=== PATIENT | male | born 1970 | race Hispanic/Latino ===

== ENCOUNTER 2018-03-25 10:08 | Inpatient (IN) | payer OTHER ==
[2018-03-25] VITALS (36 sets, daily range): BP systolic 99–166; BP diastolic 64–100
[~2018-03-25] VITALS: Ht 172.7 cm; Wt 81.3 kg
--- NOTE | 2018-03-25 10:24 | NUR ---
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
[2018-03-25] MEDS ORDERED: TORADOL IV STA ×2 (10:26→16:18)
[2018-03-25] MEDS ORDERED: TYLENOL PO STA (10:26)
[2018-03-25] MEDS ORDERED: ZOFRAN IV STA (10:26)
[2018-03-25] MEDS ORDERED: PEPCID IV STA (10:26)
[2018-03-25] MEDS ORDERED: NS 1000ML 2,000 ML IV ONE (10:30)
[2018-03-25] MEDS ORDERED: NS 1000ML 1,000 ML ONE ×2 (10:33→11:01)
[2018-03-25] MEDS ORDERED: PEPCID IV ONE (10:34)
[2018-03-25] MEDS ORDERED: ZOFRAN ONE (10:34)
[2018-03-25] MEDS ORDERED: TYLENOL PO ONE (10:34)
[2018-03-25] MEDS ORDERED: TORADOL ONE (10:34)
--- NOTE | 2018-03-25 10:38 | ER.PDOC ---
General Chief Complaint: Nausea,Vomiting,Diarrhea Stated Complaint: HEADACHE,CHILLS,VOMITING TRAVEL OUT OF US: Yes Time seen by MD: 10:31 Source: patient Exam Limitations: no limitations History of Present Illness Initial Comments 48 yo M no reported PMH presents to the ED c/o 2 days diffuse headache, neck pain, fever, body aches, general weakness, nausea/vomiting, multiple episodes of diarrhea and abdominal pain. Denies any associated photophobia. Timing/Duration: getting worse Severity: moderate Associated Symptoms: fever/chills, headaches, malaise, nausea/vomiting, weakness Allergies: Coded Allergies: No Known Allergies (Unverified , 03/25/18) Home Meds No Active Prescriptions or Reported Meds Past Medical History Medical History: no pertinent history Surgical History: no surgical history Family History Significant Family History: no pertinent family hx Social History Smoking: non-smoker Alcohol Use: none Drug Use: none Reviewed Nursing Reviewed: Vital Signs, Abn. Noted, Nursing Assessment Review of Systems Constitutional: see HPI EENTM: no symptoms reported Respiratory: no symptoms reported Cardiovascular: no symptoms reported Gastrointestinal: no symptoms reported Genitourinary: no symptoms reported Musculoskeletal: see HPI Psychiatric/Neurological: no symptoms reported Hematologic/Lymphatic: no symptoms reported Immunological/Allergic: no symptoms reported All Other Systems: Reviewed and Negative Physical Exam General Appearance: No Apparent Distress, WD/WN EENT: eyes nml inspection, nml ENT inspection Neck: Non-Tender, Full Range of Motion, Supple Respiratory: chest non-tender, lungs clear, normal breath sounds, no respiratory distress CVS: no murmur, no gallop, pulses nml, nml capillary refill, tachycardia Gastrointestinal: Normal Bowel Sounds, Tenderness (mild epigastric tenderness) Back: Normal Inspection Extremities: Normal Range of Motion, Non-Tender, Normal Inspection, No Pedal Edema 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 The area was prepped and draped in the usual sterile fashion. Using landmarks, a 2 gauge spinal needle was inserted in the L4-L5 space. The stylet was removed and the opening pressure was measured at 22 cm of water. 4cc of clear fluid was collected and sent for routine studies. The patient tolerated the procedure well. There was no blood loss or hematoma. Results/Orders Results/Orders Laboratory Tests Test 03/25/18 10:30 03/25/18 10:45 03/25/18 11:10 03/25/18 12:38 Urine Collection Type VOID Urine Color YELLOW (YELLOW) Urine Appearance HAZY (CLEAR) Urine Bilirubin NEGATIVE MG/DL (NEGATIVE) Urine Ketones 5 mg/dL (NEGATIVE) Urine Specific Bishop 1.015 (1.005-1.035) Urine pH 6 (5.0-6.0) Urine Protein 15 mg/dL (NEGATIVE) Urine Urobilinogen 4.0 (NEGATIVE) Urine Nitrate NEGATIVE (NEGATAIVE) Urine Leukocyte Esterase 25 /uL TRACE (NEGATIVE) Urine Blood 10 TR (NEGATIVE) Urine RBC 0-2 RBC/HPF (NONE SEEN) Urine WBC 5-10 WBC/HPF (0-2) Urine Squamous Epithelial Cells NONE SEEN #/HPF (FEW) Urine Bacteria RARE (NONE SEEN) Urine Other TRACE MUCOUS #/HPF Urine Glucose NORMAL (NEGATIVE) Influenza Type A Antigen NEGATIVE (NEG) Influenza B Immunofluorescence NEGATIVE (NEG) Blood Gas Sample Site VBG Oz Test N/A Lactic Acid (Blood Gas) 2.8 MMOL/L (0.5-1.0) Blood Gas Temperature 37 White Blood Count 7.7 10^3/uL (4.5-11.0) Red Blood Count 5.09 10^6/uL (4.50-5.90) Hemoglobin 15.1 g/dL (13.9-16.3) Hematocrit 44.3 % (37.0-53.0) Mean Corpuscular Volume 87.0 fL (78-100) Mean Corpuscular Hemoglobin 29.7 pg (26-34) Mean Corpuscular Hemoglobin Concent 34.1 g/dL (33-37) Red Cell Distribution Width 13.7 % (11.5-14.5) Platelet Count 213 10^3/uL (150-400) Mean Platelet Volume 10.0 fL (7.8-11.0) Neutrophils (%) (Auto) 68.6 % (41.0-85.0) Lymphocytes (%) (Auto) 19.7 % (24.0-44.0) Monocytes (%) (Auto) 10.4 % (5.0-12.0) Neutrophils # (Auto) 5.3 10^3/uL (1.8-7.7) Lymphocytes # (Auto) 1.5 10^3/uL (1.0-4.8) Monocytes # (Auto) 0.8 10^3/uL (0.3-0.8) Absolute Immature Granulocyte (auto 0.02 10^3 u/L (0-2) Eosinophils % 0.5 % (0.0-5.0) Basophils % 0.5 % (0.0-0.2) Basophils # 0.0 10^3/uL (0.0-0.1) Eosinophil Count 0.0 10^3/uL (0.0-0.2) Sodium Level 144 mmol/L (132-145) Potassium Level 3.5 mmol/L (3.6-5.2) Chloride Level 105.0 mmol/L (96-109) Carbon Dioxide Level 31.1 mmol/L (20.0-32) Anion Gap 11.4 Blood Urea Nitrogen 11 mg/dL (7-18) Creatinine 0.97 mg/dL (0.59-1.40) Estimated GFR () 100.0 (>/=60) BUN/Creatinine Ratio 11.0 Glucose Level 86 mg/dL (70-110) Calcium Level 7.9 mg/dL (8.4-10.5) Total Bilirubin 1.7 mg/dL (0.2-1.0) Aspartate Amino Transf (AST/SGOT) 17 U/L (0-35) Alanine Aminotransferase (ALT/SGPT) 19 U/L (12-78) Alkaline Phosphatase 79 U/L (50-136) Total Protein 6.9 g/dL (6.4-8.2) Albumin 3.2 g/dL (3.4-5.0) Globulin 3.7 Lipase 126 U/L (114-286) Percent Immature Gran (Cell Imm) 0.30 % (0.00-0.50) CSF Volume 4.0 ML (2.5-5.0) CSF Appearance CLEAR (CLEAR) CSF Color YELLOW (COLORLESS) CSF WBC 139 /mm3 (0-5) CSF RBC 14 /mm3 CSF Neutrophils 1 % CSF Lymphocytes 98 % CSF Other Cells BASOPHILS CSF Comment PATHOLOGY TO REVIEW CSF Glucose 64 mg/dL (40-70) CSF Total Protein 95 mg/dL (15-45) Administered Medications Medications (Trade) Dose Ordered Sig/Jaleesa Route PRN Reason Start Time Stop Time Status Last Admin Dose Admin Ondansetron HCl (Zofran) 4 mg STAT STAT IV 03/25/18 10:26 03/25/18 10:32 DC 03/25/18 10:48 Ketorolac Tromethamine (Toradol) 30 mg STAT STAT IV 03/25/18 10:26 03/25/18 10:32 DC 03/25/18 10:48 Sodium Chloride 2,000 ml @ 0 mls/hr Q0M ONCE IV 03/25/18 10:30 03/25/18 10:32 DC 03/25/18 10:48 Famotidine (Pepcid) 20 mg STAT STAT IV 03/25/18 10:26 03/25/18 10:32 DC 03/25/18 10:48 Acetaminophen (Tylenol) 1,000 mg STAT STAT PO 03/25/18 10:26 03/25/18 10:32 DC 03/25/18 10:49 Ceftriaxone Sodium 1000 mg/ Sodium Chloride 100 ml @ 100 mls/hr STAT STAT IV 03/25/18 10:55 03/25/18 11:54 DC 03/25/18 11:04 Metoclopramide HCl (Reglan) 10 mg STAT STAT IV 03/25/18 11:27 03/25/18 11:32 DC 03/25/18 11:47 Diphenhydramine HCl (Benadryl) 25 mg STAT STAT IV 03/25/18 11:45 03/25/18 11:47 DC 03/25/18 11:43 Microbiology Date/Time Source Procedure Growth Status 03/25/18 12:38 Cerebral Spinal Fluid Gram Stain - Final Resulted 03/25/18 12:38 Cerebral Spinal Fluid CSF Culture Pending Resulted Progress Progress 48 yo M p/w multiple complaints, DDx includes viral illness, intraabdominal infection at this time. VS notable for tachycardia, will intiate lab workup to r/o sepsis, occult infection, also give IVF, analgesia and anti-emetic. 1236pm - patient c/o persistent neck pain, he was consented for LP, results pending. 240pm - CSF results consistent with viral meningitis, patient discussed with Dr. Ivy, admitted to ICU with droplet precautions. Departure Time of Disposition: 15:00 Disposition: 09 ADMITTED INPATIENT Impression: Primary Impression: Viral meningitis Condition: Stable Referrals: PCP,UNKNOWN (PCP) PRIMARY CARE PROVIDER Scripts No Active Prescriptions or Reported Meds Duration or Time Spent with Pa: 60 SABAS SALVADOR MD Mar 25, 2018 10:38
[2018-03-25] MEDS ORDERED: ROCEPHIN 1,000 MG in NS 100ML 100 ML IV STA (10:55)
--- NOTE | 2018-03-25 10:55 | NUR ---
RT LACTIC 2.9
--- NOTE | 2018-03-25 11:00 | NUR ---
BLOOD CULTURES BLOOD CULTURES DRAWN BY LAB.
[2018-03-25] MEDS ORDERED: ROCEPHIN ONE ×2 (11:01→20:40)
[2018-03-25 11:02] LABS: BILIRUBIN,URINE NEGATIVE (NEGATIVE)
[2018-03-25 11:22] LABS: BASOPHIL % 0.5 % (0.0-0.2); EOSINOPHIL % 0.5 % (0.0-5.0); HEMOGLOBIN 15.1 g/dL (13.9-16.3); LYMPHOCYTES # 1.5 10^3/uL (1.0-4.8); LYMPHOCYTES % 19.7 % (24.0-44.0); MEAN CELL HGB 29.7 pg (26-34); MEAN CELL HGB CONCENTRATION 34.1 g/dL (33-37); MONOCYTES # 0.8 10^3/uL (0.3-0.8); MONOCYTES % 10.4 % (5.0-12.0); NEUTROPHIL # 5.3 10^3/uL (1.8-7.7); NEUTROPHILS % 68.6 % (41.0-85.0); RED CELL DISTRIBUTION WIDTH 13.7 % (11.5-14.5); WHITE BLOOD CELL 7.7 10^3/uL (4.5-11.0)
[2018-03-25] MEDS ORDERED: REGLAN IV STA (11:27)
[2018-03-25] MEDS ORDERED: BENADRYL IM STA (11:27)
[2018-03-25 11:34] LABS: APPEARANCE,URINE HAZY (CLEAR); UA COLOR YELLOW (YELLOW)
[2018-03-25 11:35] LABS: CALCIUM 7.9 mg/dL (8.4-10.5); CARBON DIOXIDE 31.1 mmol/L (20.0-32)
[2018-03-25] MEDS ORDERED: BENADRYL ONE (11:39)
[2018-03-25] MEDS ORDERED: NS 100ML 100 ML IV ONE ×2 (11:43→20:41)
[2018-03-25] MEDS ORDERED: BENADRYL IV STA (11:45)
--- NOTE | 2018-03-25 11:50 | NUR ---
STATUS PATIENT RESTING, NO DISTRESS NOTED.
--- NOTE | 2018-03-25 12:19 | NUR ---
LUMBAR PUNCTURE CONSENT SIGNED FOR PROCEDURE,DOCTOR SRI AT BEDSIDE, LUMBAR PUNCTURE PREFORMED USING STERILE TECHNIQUE.
--- NOTE | 2018-03-25 12:34 | NUR ---
SPINAL FLUID 2 SAMPLED OF SPINAL FLUIDS COLLECTED BY DOCTOR FIERRO AND SENT TO LAB, PATIENT TOLERATED PROCEDURE WELL, PATIENT LYING ON LEFT SIDE.
--- NOTE | 2018-03-25 12:55 | NUR ---
PUNCTURE SITE ASSESSED PATIENTS PUNCTURE SITE, DRESSING REMAINS CLEAN,DRY AND INTACT. PATIENT DENIES NEEDS AT THIS TIME.
--- NOTE | 2018-03-25 13:30 | NUR ---
STATUS PATIENT RESTING ON LEFT SIDE, DRESSING CLEAN DRY AND INTACT, AWAITING LAB RESULTS.
--- NOTE | 2018-03-25 14:17 | NUR ---
SANDRA FIERRO ON PHONE
[2018-03-25] MEDS ORDERED: TYLENOL PO PRN (14:30)
[2018-03-25] MEDS ORDERED: ZOFRAN IV PRN (14:30)
[2018-03-25] MEDS ORDERED: ZOVIRAX IV SCH (14:33)
[2018-03-25] MEDS ORDERED: NS IV SCH (14:33)
--- NOTE | 2018-03-25 14:53 | NUR ---
Arrival Patient arrived on unit via stretcher. Patient transferred self to bed with stand by assistance. Report received from Elva WHITING. Assumed care of patient. Placed patient on bedside monitor. Oriented patient to room. Offered patient fluids and snacks. Admission and assessment completed as charted. Lumbar puncture to lower back noted, performed in ER. Site covered with bandaid. No drainage noted. Educated pt on use of call light, pt verbalized understanding. Educated patient on droplet precautions related to meningitis, pt verbalized understanding. Educated pt on medication regimen, pt verbalized understanding. Answered all of patient's questions. Call light within reach. Will continue to monitor. No s/s of distress noted
--- NOTE | 2018-03-25 15:00 | NUR ---
Mobility level Patient mobility level B. Patient will get up to chair 3x per day for meals and use B[facility] for all needs. Patient participates in own care.
--- NOTE | 2018-03-25 15:30 | NUR ---
Dr. Cata Ivy on telephone. New order received for 500cc IV bolus per sepsis protocol, 1/2 NS with 20K to infuse at 70ml/hr. New order received for Rocephin 1gm q12hr. RBTO.
[2018-03-25] MEDS ORDERED: NS 500ML 500 ML IV ONE ×2 (15:35→16:00)
[2018-03-25] MEDS ORDERED: HNS 1000ML/KCL 20MEQ 1,000 ML ONE (15:36)
[2018-03-25] MEDS ORDERED: VANCOMYCIN HCL 1 GM in NS 250ML 250 ML IV SCH ×3 (16:00→18:00)
--- NOTE | 2018-03-25 16:00 | NUR ---
Dr. Cata Ivy at bedside. No new orders received.
[2018-03-25] MEDS ORDERED: VANCOMYCIN HCL 1 GM ONE (16:28)
[2018-03-25] MEDS ORDERED: NS 250ML 250 ML IV ONE (16:38)
--- NOTE | 2018-03-25 17:04 | HPH ---
ADMIT DATE: 03/25/2018 The patient is being admitted to ICU as an inpatient. PRIMARY CARE PHYSICIAN: None. ADMITTING DIAGNOSIS: Meningitis with headache and photophobia. CHIEF COMPLAINT: Headache, fever and chills. 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 He is from the [facility] and he has been healthy recently. There days ago, he was working with his coworkers on the pavement and there were sick contacts around him, several of his coworkers had some type of illness, where they were having diarrhea and not feeling well, but they did get over this. He started to come down with some headache, vague headache, night and this progressed for him to be nauseated, but no vomiting. He started to have some neck stiffness and some body aches and he tried to eat, but really had no appetite and he was extremely nauseated. This progressed throughout the next couple of days. He did not feel better. 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 He denies any arthralgias, no melena, no hematochezia, no shortness of breath, no chest pain, no hemoptysis, no hematemesis. He denies any ticks that have bit him recently and he has looked all over his body for any kind of tick florentino and he does not recall having any, but he was still feeling bad with rigors, chills and headache. So, his boss made him go to the hospital where he was subsequently admitted to my service. PAST MEDICAL HISTORY: None. PAST SURGICAL HISTORY: None. ALLERGIES: No known drug allergies. MEDICATIONS: He takes is none. SOCIAL HISTORY: Does not smoke. Occasional alcohol, no illicit drugs. FAMILY HISTORY: Asked and noncontributory for this admission. PHYSICAL EXAMINATION: VITAL SIGNS: Upon presentation, his temperature is 98.4, pulse rate was 107, respirations 20, blood pressure is 163/97, O2 sats of 98% on room air. My physical exam is as follows: GENERAL: He is in no acute distress, awake, alert, oriented x 4. His sensorium is intact. OROPHARYNX: He did have some whitish ulcerated lesions in the hard palate in his mouth. On his face, there are 2 areas of boils noted to his right cheek. NECK: Supple, no JVD, no bruits. HEART: S1, S2 audible. No tachycardia. Heart rate on my exam was about 80. LUNGS: Clear bilaterally, was not tachypneic. ABDOMEN: Good bowel sounds, soft abdomen. No rebound or guarding. EXTREMITIES: No pitting edema, 2+ distal pulses are noted. SKIN: Warm and dry. NEUROLOGIC: There are no gross motor deficits noted. Pupils were equal, reactive to light. LABORATORY DATA: He was a bit photophobic on my exam. Labs were drawn. CBC was normal. White count was 7700. Lactic acid level is 2.8. Chemistry panel showed potassium 3.5, calcium 7.9. Total bilirubin of 1.7, albumin 3.2. UA was hazy with 5-10 wbc's and rare bacteria noted. He had a lumbar puncture done in the ER that was clear but he did have 139 white cells, 98% of them were lymphocytes. Glucose was 64, total protein was elevated to 95. ASSESSMENT: We have this gentleman with meningitis with headache, photophobia and fever. I will go ahead and admit him to ICU under droplet precautions for the first 48 hours. I will empirically start him on vancomycin, Rocephin at meningitic doses and await for cultures, put him on IV fluids and treat his headache and follow him closely in the hospital. Dary Ivy MD DR: GINGER/adilson JOB# [id number]
[2018-03-25] MEDS: HNS 1000ML/KCL 20MEQ 1,000 ML IV SCH (17:10)
[2018-03-25] MEDS: DECADRON IV SCH ×2 (17:55→23:48)
--- NOTE | 2018-03-25 18:00 | NUR ---
Urinal Patient stood at side of bed to urinate in urinal. 500 cc of cloudy light shantanu urine noted.
--- NOTE | 2018-03-25 18:45 | NUR ---
REPORT RECEIVED FROM ANMOL FLORES RN. ASSUMED PT CARE.
--- NOTE | 2018-03-25 20:00 | NUR ---
PUNCTURE SITE ASSESSED PATIENTS PUNCTURE SITE, DRESSING REMAINS CLEAN, DRY AND INTACT. PT REPORTS SLIGHT PAIN TO SITE. PATIENT DENIES NEEDS AT THIS TIME.
--- NOTE | 2018-03-25 20:30 | NUR ---
PT STATUS: PT REPORTED HEADACHE AND STIFFNESS TO NECK, BODY CHILLS AND FEELING CLAMMY. PT DENIES ANY PHOTOPHOBIA, OR NAUSEA AT THIS TIME. PT IS AFEBRILE. PT ALSO REPORTS OF SLIGHT WEAKNESS BUT MUCH BETTER THAN PAST FEW DAYS. DISEASE PROCESS EXPLAINED TO PT WELL SYMPTOMS TO EXPECT. ALSO INFORMED PT OF CURRENT TREATMENT PLAN OF ANTIBIOTICS, STEROIDS AND PAIN MANAGEMENT. PT VERBALIZED UNDERSTANDING.
[2018-03-25] MEDS ORDERED: ROCEPHIN 1,000 MG in NS 100ML 100 ML IV SCH (21:00)
[2018-03-25] MEDS ORDERED: ROCEPHIN 2,000 MG in NS 100ML 100 ML IV SCH (21:00)
--- NOTE | 2018-03-25 21:13 | NUR ---
MOBILITY LEVEL B: PT IS MOBILITY LEVEL B.
--- NOTE | 2018-03-25 21:15 | NUR ---
SNACK: PT REQUESTED EVENING SNACK OF JELLO AND PROVIDED.
[2018-03-25] MEDS: TORADOL IV PRN (23:50)
[2018-03-26] VITALS (43 sets, daily range): BP systolic 111–160; BP diastolic 50–97
--- NOTE | 2018-03-26 00:05 | NUR ---
VOID: PT UP TO BEDSIDE TO VOID USING URINAL. PT VOIDED 500ML. PT IS MOBILITY LEVEL B.
[2018-03-26] MEDS: TYLENOL PO PRN ×3 (02:57→20:51)
--- NOTE | 2018-03-26 03:03 | NUR ---
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 PAIN AUTOMATIC DIE CUTTING MACHINE OPERATOR TO MANAGE BREAKTHROUGH PAIN. PER MD TO CONTINUE TO GIVE PAIN MED BY ALTERNATING TYLENOL AND KETOROLAC.
[2018-03-26] MEDS ORDERED: VANCOMYCIN HCL 1 GM ONE (04:44)
[2018-03-26] MEDS ORDERED: NS 250ML 250 ML IV ONE (04:44)
--- NOTE | 2018-03-26 04:54 | NUR ---
LAB AT BEDSIDE FOR BLOOD DRAW.
[2018-03-26] MEDS ORDERED: VANCOMYCIN HCL 1 GM in NS 250ML 250 ML IV SCH (05:00)
--- NOTE | 2018-03-26 05:07 | NUR ---
MOBILITY LEVEL B: PT IS MOBILITY LEVEL B. PT UP TO BEDSIDE TO VOID USING URINAL. PT TOLERATED WELL.
[2018-03-26 05:22] LABS: BASOPHIL % 0.1 % (0.0-0.2); HEMOGLOBIN 14.4 g/dL (13.9-16.3); LYMPHOCYTES % 12.1 % (24.0-44.0); MEAN CELL HGB 29.2 pg (26-34); MEAN CELL HGB CONCENTRATION 34.1 g/dL (33-37); MEAN CORP VOLUME 85.6 fL (78-100); MEAN PLATELET VOLUME 10.1 fL (7.8-11.0); MONOCYTES # 0.1 10^3/uL (0.3-0.8); MONOCYTES % 0.6 % (5.0-12.0); NEUTROPHIL # 6.9 10^3/uL (1.8-7.7); NEUTROPHILS % 87.1 % (41.0-85.0); RED CELL DISTRIBUTION WIDTH 13.3 % (11.5-14.5)
[2018-03-26 05:44] LABS: CALCIUM 8.4 mg/dL (8.4-10.5); CARBON DIOXIDE 26.5 mmol/L (20.0-32)
[2018-03-26] MEDS: DECADRON IV SCH ×4 (05:49→23:38)
--- NOTE | 2018-03-26 06:00 | NUR ---
BATH: PT GIVEN SUPPLIES TO GIVE SELF BATH AND ORAL CARE. PT AMBULATED WELL IN ROOM WITH NO DIFFICULTY NOTED. BED LINEN CHANGED AND PT SEATED IN CHAIR. PT AGREED TO SIT IN CHAIR UNTIL BREAKFAST THIS AM. CALL LIGHT WITHIN REACH. PT REPORTS FEELING BETTER. PT REPORTS OF SLIGHT PAIN TO HEAD AND MINIMAL PHOTOPHOBIA.
[2018-03-26] MEDS: TORADOL IV PRN (06:13)
--- NOTE | 2018-03-26 06:30 | NUR ---
DR FLORES AT BEDSIDE. PT HAD SEVERAL CONCERNS WHICH HAVE BEEN ADDRESSED BY MD REGARDING DISEASE PROCESS AND PLAN OF CARE. PT VERBALIZED UNDERSTANDING.
--- NOTE | 2018-03-26 06:40 | NUR ---
MOBILITY LEVEL: PT UPGRADED TO MOBILITY LEVEL A. PT DID ALL PERSONAL CARE BY HIMSELF. PT ABLE TO AMBULATE TO BATHROOM FOR TOILETING NEEDS. PT SEATED IN CHAIR FOR BREAKFAST.
--- NOTE | 2018-03-26 07:00 | NUR ---
REPORT TO AM SHIFT. PT CARE RELINQUISHED.
--- NOTE | 2018-03-26 07:00 | NUR ---
RECEIVED REPORT AND PATIENT CARE ASSUMED. PATIENT AWAKE SITTING UP IN CHAIR WATCHING TV. WEARING NON SKID SOCKS. NO DISTRESS NOTED. CALL LIGHT WITHIN EASY REACH.
--- NOTE | 2018-03-26 07:35 | NUR ---
ASSESSMENT/ACTIVITY LEVEL A ASSESSMENT COMPLETED CHARTED. SEE EMR. NO DISTRESS NOTED. PATIENT AMBULATED BACK TO BE WITHOUT ASSISTANCE .GAIT STEADY AND BALANCED. HOB ELEVATED 45 DEGREE. PATIENT C/O GAYLE TO BACK HEAD AND TO FRONTAL SINUS AREA. RATED PAIN 6/10. PATIENT ABLE TO HAVE TYLENOL 500MG PO AT 0900. LUNG CTAB. HR REGULAR. PULSE 2+ TO ALL EXTREMITIES. NO EDEMA NOTED. ORAL TEMP 97.8
--- NOTE | 2018-03-26 08:00 | NUR ---
AMB TO CHAIR PATIENT AMB TO CHAIR FOR BREAKFAST. NO DISTRESS NOTED. CALL LIGHT WITHIN EASY REACH.
--- NOTE | 2018-03-26 08:28 | NUR ---
DR. PAZ/AMBULATION EMILY. BRANDI AT BEDSIDE. PATIENT AMBULATED BACK TO BED WITHOUT ASSISTANCE. DR. PAZ TURNED ON BRIGHT LIGHT PATIENT HAD NO S/S OF PHOTOSENSITIVITY. C/O OF ACHE TO NECK AND FRONTAL SINUS AREA. DR. PAZ TO PRESCRIBED FLEXERIL 10MG PO. PATIENT TO TRANSFER TO MED/SURG TODAY. PATIENT AGREED TO POC. NO QUESTIONS AT THIS TIME. WRITTEN INFORMATION GIVEN REGARDING VIRAL MENINGITIS. PATIENT LEFT RESTING IN BED. CALL LIGHT WITHIN EASY REACH.
[2018-03-26] MEDS ORDERED: FLEXERIL PO PRN (09:00)
[2018-03-26] MEDS: ROCEPHIN 2,000 MG in NS 100ML 100 ML IV SCH ×2 (09:41→20:52)
[2018-03-26] MEDS: PROTONIX PO SCH (09:42)
--- NOTE | 2018-03-26 09:45 | NUR ---
DISCHARGE PLAN CM VISITED WITH PATIENT REGARDING DISCHARGE PLAN AND NEEDS. PATIENT LIVES IN [place], [place] BUT HAS BEEN STAYING AT THE [facility] IN [place] WHILE HE IS HERE FOR WORK. HE IS VERY ACTIVE AND INDEPENDENT. HE HAS A GREAT SUPPORT SYSTEM THROUGH FAMILY AND FRIENDS. NO CM NEEDS AT THIS TIME. PATIENT VOICED CONCERN ON TRANSPORTATION BACK TO THE [facility] UPON DISCHARGE. PATIENT NOTIFIED THAT WE HAVE A [facility] THAT CAN TAKE HIM. 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 PATIENT STATES HE WILL SPEAK WITH DR. PAZ ABOUT WHEN HE CAN RETURN TO WORK. DISCHARGE GOAL IS TO DISCHARGE HOME WITH ROUTINE SELF CARE. CM DEPT WILL CONTINUE TO MONITOR DISCHARGE NEEDS.
--- NOTE | 2018-03-26 10:15 | NUR ---
MED/SURG TRANSFER PATIENT TRANSFER SELF INTO WC. FACE MASK PLACED ON PATIENT. PATIENT TAKE TO MED/SURG ROOM 302. ORIENTED TO ROOM, BED, AND CALL LIGHT. WATER AND SNACK PROVIDED. REPORT GIVEN TO ELSI WHITING.
--- NOTE | 2018-03-26 10:30 | NUR ---
ARRIVAL Pt ARRIVED TO THE UNIT IN ROOM 302,IN WC ASSISTED BY ICU NURSE, REPORT RECEIVED FROM THE ICU NURSE, Pt IN DROPLET PRECAUTIONS FOR [address] PER ORDER OF [address]. FLORES. ORIENTED Pt TO ROOM. CALL LIGHT, BATHROOM, BED REMOTE. Pt AO X 4, VERBALIZES NEEDS, WILL CONTINUE TO MONITOR THE Pt.
[2018-03-26] MEDS: HNS 1000ML/KCL 20MEQ 1,000 ML IV SCH ×2 (13:46→21:36)
[2018-03-26] MEDS: VANCOMYCIN HCL 1 GM in NS 250ML 250 ML IV SCH (17:31)
--- NOTE | 2018-03-26 17:31 | NUR ---
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
[2018-03-27] MEDS ORDERED: DECADRON ONE ×2 (01:03→01:05)
--- NOTE | 2018-03-27 02:19 | PNH ---
DATE: 03/26/2018 SUBJECTIVE: He has no photophobia and no nuchal rigidity. He complains of a headache in a band-like fashion around his head. No nausea. No acute events overnight. OBJECTIVE: VITAL SIGNS: T-max since admission is 98.8, pulse of 69, respiratory rate 16, blood pressure 136/81, O2 saturation 96% on room air. GENERAL: He is alert, in no acute distress at time of exam. HEENT: Pupils equal, round, reactive to light. Sclerae are anicteric. Oropharynx is clear. Mucous membranes are moist. There is no photophobia. NECK: Supple, no nuchal rigidity, no lymphadenopathy. CARDIOVASCULAR: At time of exam was regular rate and rhythm. LUNGS: Clear bilaterally. No wheezing. ABDOMEN: Soft. Bowel sounds are present, nontender to palpation. EXTREMITIES: No cyanosis, clubbing, edema. NEUROLOGIC: Grossly nonfocal. LABORATORY DATA: CBC: White count 8.0, hemoglobin 14.4, platelets 217. Differential: 87% neutrophils, 12% lymphocytes. Sodium 141, potassium 4.2, chloride 106, CO2 is 26, BUN 10, creatinine 0.85, glucose 142, calcium is 8.4, total bilirubin 0.8, AST 13, ALT is 20, alkaline phosphatase 76, total protein 6.8, albumin 3.1. CSF from lumbar puncture yesterday, total protein 95, glucose is 64, 98% lymphocytes. ASSESSMENT AND PLAN: The patient is a 48-year-old man here with viral meningitis who was clinically improving. 1. We will move to the medical floor. Activity as tolerated. 2. IV p.r.n. pain and nausea medications. 3. We will follow up culture and susceptibilities. Likely, we will be able discontinue antibiotics later today. Time spent on 03/26/2018 is 25 minutes. Inocencio Peterson MD DR: VERONIQUE/adilson JOB# [id number]
[2018-03-27 04:23] VITALS: BP 115/80
[2018-03-27] MEDS: DECADRON IV SCH ×2 (05:42→12:00)
[2018-03-27] MEDS: VANCOMYCIN HCL 1 GM in NS 250ML 250 ML IV SCH (05:43)
--- NOTE | 2018-03-27 06:30 | NUR ---
REPORT RECEIVED FROM HIRAL ESPINOZA.
--- NOTE | 2018-03-27 07:30 | NUR ---
PATIENT LYING IN BED WITH EYES CLOSED. RESPIRATIONS UNLABORED. NO DISTRESS NOTED. SR UP X2. CALL LIGHT WITHIN REACH. PATIENT ON DROPLET PRECAUTIONS. IV PATENT IN LEFT AC. NS WITH 20MEQ INFUSING VIA PUMP AT 70CC/HR. NEGATIVE S/S INFILTRATION. NO COMPLAINTS VOICED.
[2018-03-27] MEDS ORDERED: CYCL10TA2 PO (07:55)
[2018-03-27] MEDS ORDERED: ACET500T73 PO (07:55)
--- NOTE | 2018-03-27 07:58 | PRM.DC ---
Discharge Summary Date of Discharge: Mar 27, 2018 Reason for Visit: Headache Patient History: Patient reports no known family medical history. History Present Illness: (1) Viral meningitis Status: Acute ICD Code: A87.9 - Viral meningitis, unspecified SNOMED: [id number] General: Alert, Oriented X3, Cooperative, No acute distress HEENT: Atraumatic, PERRLA Neck: Supple, No JVD Lungs: Clear to auscultation, Normal air movement Heart: Regular rate, Normal S1, Normal S2, No murmurs Abdomen: Normal bowel sounds, Soft, No tenderness Extremities: No clubbing, No cyanosis, No edema Skin: No rashes, No breakdown Neuro: Normal speech, Strength at 5/5 X4 ext, Cranial nerves 3-12 NL, Other ( no photophobia or nuchal rigidity) Psych/Mental Status: Mood NL Results(Labs/Rad) Laboratory Tests Test 03/25/18 10:30 03/25/18 10:45 03/25/18 11:10 03/25/18 12:38 Urine Collection Type VOID Urine Color YELLOW Urine Appearance HAZY Urine Bilirubin NEGATIVE MG/DL Urine Ketones 5 mg/dL Urine Specific [place] 1.015 Urine pH 6 Urine Protein 15 mg/dL Urine Urobilinogen 4.0 Urine Nitrate NEGATIVE Urine Leukocyte Esterase 25 /uL TRACE Urine Blood 10 TR Urine RBC 0-2 RBC/HPF Urine WBC 5-10 WBC/HPF Urine Squamous Epithelial Cells NONE SEEN #/HPF Urine Bacteria RARE Urine Other TRACE MUCOUS #/HPF Urine Glucose NORMAL Influenza Type A Antigen NEGATIVE Influenza B Immunofluorescence NEGATIVE Blood Gas Sample Site VBG Oz Test N/A Lactic Acid (Blood Gas) 2.8 MMOL/L Blood Gas Temperature 37 White Blood Count 7.7 10^3/uL Red Blood Count 5.09 10^6/uL Hemoglobin 15.1 g/dL Hematocrit 44.3 % Mean Corpuscular Volume 87.0 fL Mean Corpuscular Hemoglobin 29.7 pg Mean Corpuscular Hemoglobin Concent 34.1 g/dL Red Cell Distribution Width 13.7 % Platelet Count 213 10^3/uL Mean Platelet Volume 10.0 fL Neutrophils (%) (Auto) 68.6 % Lymphocytes (%) (Auto) 19.7 % Monocytes (%) (Auto) 10.4 % Neutrophils # (Auto) 5.3 10^3/uL Lymphocytes # (Auto) 1.5 10^3/uL Monocytes # (Auto) 0.8 10^3/uL Absolute Immature Granulocyte (auto 0.02 10^3 u/L Eosinophils % 0.5 % Basophils % 0.5 % Basophils # 0.0 10^3/uL Eosinophil Count 0.0 10^3/uL Sodium Level 144 mmol/L Potassium Level 3.5 mmol/L Chloride Level 105.0 mmol/L Carbon Dioxide Level 31.1 mmol/L Anion Gap 11.4 Blood Urea Nitrogen 11 mg/dL Creatinine 0.97 mg/dL Estimated GFR () 100.0 BUN/Creatinine Ratio 11.0 Glucose Level 86 mg/dL Calcium Level 7.9 mg/dL Total Bilirubin 1.7 mg/dL Aspartate Amino Transf (AST/SGOT) 17 U/L Alanine Aminotransferase (ALT/SGPT) 19 U/L Alkaline Phosphatase 79 U/L Total Protein 6.9 g/dL Albumin 3.2 g/dL Globulin 3.7 Lipase 126 U/L Percent Immature Gran (Cell Imm) 0.30 % CSF Volume 4.0 ML CSF Appearance CLEAR CSF Color YELLOW CSF WBC 139 /mm3 CSF RBC 14 /mm3 CSF Neutrophils 1 % CSF Lymphocytes 98 % CSF Other Cells BASOPHILS CSF Comment PATHOLOGY TO REVIEW CSF Glucose 64 mg/dL CSF Total Protein 95 mg/dL Test 03/25/18 15:34 03/26/18 04:54 Blood Gas Sample Site RT RADIAL ARTERY Oz Test POSITIVE Lactic Acid (Blood Gas) 1.3 MMOL/L Blood Gas Temperature 37 White Blood Count 8.0 10^3/uL Red Blood Count 4.93 10^6/uL Hemoglobin 14.4 g/dL Hematocrit 42.2 % Mean Corpuscular Volume 85.6 fL Mean Corpuscular Hemoglobin 29.2 pg Mean Corpuscular Hemoglobin Concent 34.1 g/dL Red Cell Distribution Width 13.3 % Platelet Count 217 10^3/uL Mean Platelet Volume 10.1 fL Neutrophils (%) (Auto) 87.1 % Lymphocytes (%) (Auto) 12.1 % Monocytes (%) (Auto) 0.6 % Neutrophils # (Auto) 6.9 10^3/uL Lymphocytes # (Auto) 1.0 10^3/uL Monocytes # (Auto) 0.1 10^3/uL Absolute Immature Granulocyte (auto 0.01 10^3 u/L Eosinophils % 0.0 % Basophils % 0.1 % Basophils # 0.0 10^3/uL Eosinophil Count 0.0 10^3/uL Sodium Level 141 mmol/L Potassium Level 4.2 mmol/L Chloride Level 106.0 mmol/L Carbon Dioxide Level 26.5 mmol/L Anion Gap 12.7 Blood Urea Nitrogen 10 mg/dL Creatinine 0.85 mg/dL Estimated GFR () 116.4 BUN/Creatinine Ratio 11.0 Glucose Level 142 mg/dL Calcium Level 8.4 mg/dL Total Bilirubin 0.8 mg/dL Aspartate Amino Transf (AST/SGOT) 13 U/L Alanine Aminotransferase (ALT/SGPT) 20 U/L Alkaline Phosphatase 76 U/L Total Protein 6.8 g/dL Albumin 3.1 g/dL Globulin 3.7 Percent Immature Gran (Cell Imm) 0.10 % Scheduled PRN Acetaminophen (Acetaminophen), 500 MG PO Q6H PRN for PAIN MILD Cyclobenzaprine Hcl (Flexeril), 10 MG PO Q8 PRN for MUSCLE SPASM Sepsis Evaluation @ Discharge 03/27/18 04:25 Course Sepsis Screening Results: Posi: NEGATIVE Sepsis Qualifier/Stage: NO DEFINITE RISK Vitals & review Data Vital Sign - Last 24 Hours 03/26/18 03/26/18 03/26/18 03/26/18 08:03 08:16 08:30 08:45 Pulse 82 84 69 73 Resp 23 19 17 17 B/P (MAP) 145/88 (107) 143/86 (105) 138/89 (105) Pulse Ox 98 97 96 96 03/26/18 03/26/18 03/26/18 03/26/18 09:00 09:15 09:30 09:45 Pulse 70 71 72 65 Resp 5 16 18 15 B/P (MAP) 139/77 (97) 130/74 (92) 137/84 (101) 144/89 (107) Pulse Ox 97 97 97 97 03/26/18 03/26/18 03/26/18 03/26/18 10:00 10:30 12:10 13:51 Temp 97.7 Pulse 74 93 Resp 15 18 B/P (MAP) 114/80 (91) Pulse Ox 96 93 O2 Delivery Room Air Room Air 03/26/18 03/26/18 03/26/18 03/26/18 16:00 20:19 22:26 23:50 Temp 97.4 98.1 97.7 Pulse 62 82 69 Resp 18 18 18 B/P (MAP) 125/79 (94) 128/76 (93) 118/74 (89) Pulse Ox 98 96 96 O2 Delivery Room Air Room Air Room Air 03/27/18 04:23 Temp 97.3 Pulse 66 Resp 18 B/P (MAP) 115/80 (92) Pulse Ox 95 O2 Delivery Room Air Intake and Output 03/26/18 03/26/18 03/27/18 15:00 23:00 07:00 Intake Total 920 ml 400 ml 666 ml Output Total 625 ml 600 ml 1500 ml Balance 295 ml -200 ml -834 ml Laboratory Tests Test 03/25/18 10:30 03/25/18 10:45 03/25/18 11:10 03/25/18 12:38 Urine Collection Type VOID Urine Color YELLOW Urine Appearance HAZY Urine Bilirubin NEGATIVE MG/DL Urine Ketones 5 mg/dL Urine Specific [place] 1.015 Urine pH 6 Urine Protein 15 mg/dL Urine Urobilinogen 4.0 Urine Nitrate NEGATIVE Urine Leukocyte Esterase 25 /uL TRACE Urine Blood 10 TR Urine RBC 0-2 RBC/HPF Urine WBC 5-10 WBC/HPF Urine Squamous Epithelial Cells NONE SEEN #/HPF Urine Bacteria RARE Urine Other TRACE MUCOUS #/HPF Urine Glucose NORMAL Influenza Type A Antigen NEGATIVE Influenza B Immunofluorescence NEGATIVE Blood Gas Sample Site VBG Oz Test N/A Lactic Acid (Blood Gas) 2.8 MMOL/L Blood Gas Temperature 37 White Blood Count 7.7 10^3/uL Red Blood Count 5.09 10^6/uL Hemoglobin 15.1 g/dL Hematocrit 44.3 % Mean Corpuscular Volume 87.0 fL Mean Corpuscular Hemoglobin 29.7 pg Mean Corpuscular Hemoglobin Concent 34.1 g/dL Red Cell Distribution Width 13.7 % Platelet Count 213 10^3/uL Mean Platelet Volume 10.0 fL Neutrophils (%) (Auto) 68.6 % Lymphocytes (%) (Auto) 19.7 % Monocytes (%) (Auto) 10.4 % Neutrophils # (Auto) 5.3 10^3/uL Lymphocytes # (Auto) 1.5 10^3/uL Monocytes # (Auto) 0.8 10^3/uL Absolute Immature Granulocyte (auto 0.02 10^3 u/L Eosinophils % 0.5 % Basophils % 0.5 % Basophils # 0.0 10^3/uL Eosinophil Count 0.0 10^3/uL Sodium Level 144 mmol/L Potassium Level 3.5 mmol/L Chloride Level 105.0 mmol/L Carbon Dioxide Level 31.1 mmol/L Anion Gap 11.4 Blood Urea Nitrogen 11 mg/dL Creatinine 0.97 mg/dL Estimated GFR () 100.0 BUN/Creatinine Ratio 11.0 Glucose Level 86 mg/dL Calcium Level 7.9 mg/dL Total Bilirubin 1.7 mg/dL Aspartate Amino Transf (AST/SGOT) 17 U/L Alanine Aminotransferase (ALT/SGPT) 19 U/L Alkaline Phosphatase 79 U/L Total Protein 6.9 g/dL Albumin 3.2 g/dL Globulin 3.7 Lipase 126 U/L Percent Immature Gran (Cell Imm) 0.30 % CSF Volume 4.0 ML CSF Appearance CLEAR CSF Color YELLOW CSF WBC 139 /mm3 CSF RBC 14 /mm3 CSF Neutrophils 1 % CSF Lymphocytes 98 % CSF Other Cells BASOPHILS CSF Comment PATHOLOGY TO REVIEW CSF Glucose 64 mg/dL CSF Total Protein 95 mg/dL Test 03/25/18 15:34 03/26/18 04:54 Blood Gas Sample Site RT RADIAL ARTERY Oz Test POSITIVE Lactic Acid (Blood Gas) 1.3 MMOL/L Blood Gas Temperature 37 White Blood Count 8.0 10^3/uL Red Blood Count 4.93 10^6/uL Hemoglobin 14.4 g/dL Hematocrit 42.2 % Mean Corpuscular Volume 85.6 fL Mean Corpuscular Hemoglobin 29.2 pg Mean Corpuscular Hemoglobin Concent 34.1 g/dL Red Cell Distribution Width 13.3 % Platelet Count 217 10^3/uL Mean Platelet Volume 10.1 fL Neutrophils (%) (Auto) 87.1 % Lymphocytes (%) (Auto) 12.1 % Monocytes (%) (Auto) 0.6 % Neutrophils # (Auto) 6.9 10^3/uL Lymphocytes # (Auto) 1.0 10^3/uL Monocytes # (Auto) 0.1 10^3/uL Absolute Immature Granulocyte (auto 0.01 10^3 u/L Eosinophils % 0.0 % Basophils % 0.1 % Basophils # 0.0 10^3/uL Eosinophil Count 0.0 10^3/uL Sodium Level 141 mmol/L Potassium Level 4.2 mmol/L Chloride Level 106.0 mmol/L Carbon Dioxide Level 26.5 mmol/L Anion Gap 12.7 Blood Urea Nitrogen 10 mg/dL Creatinine 0.85 mg/dL Estimated GFR () 116.4 BUN/Creatinine Ratio 11.0 Glucose Level 142 mg/dL Calcium Level 8.4 mg/dL Total Bilirubin 0.8 mg/dL Aspartate Amino Transf (AST/SGOT) 13 U/L Alanine Aminotransferase (ALT/SGPT) 20 U/L Alkaline Phosphatase 76 U/L Total Protein 6.8 g/dL Albumin 3.1 g/dL Globulin 3.7 Percent Immature Gran (Cell Imm) 0.10 % Current Medications Medications (Trade) Dose Ordered Sig/Jaleesa PRN Reason Start Time Stop Time Status Last Admin Acetaminophen (Tylenol) 500 mg Q6H PRN PAIN MILD 03/26/18 02:30 04/25/18 02:29 03/26/18 20:51 Ceftriaxone Sodium 2000 mg/ Sodium Chloride 100 ml @ 100 mls/hr Q12HR 03/26/18 08:17 04/24/18 20:59 03/26/18 20:52 Cyclobenzaprine HCl (Flexeril) 10 mg Q8 PRN MUSCLE SPASM 03/26/18 09:00 04/25/18 08:59 03/26/18 09:42 Dexamethasone Sodium Phosphate (Decadron) 11 mg Q6HR 03/25/18 18:00 04/24/18 17:59 03/27/18 05:42 Ketorolac Tromethamine (Toradol) 15 mg Q6H PRN PAIN 03/25/18 14:30 03/30/18 14:29 03/26/18 06:13 Ondansetron HCl (Zofran) 4 mg Q4H PRN NAUSEA / VOMITING 03/25/18 14:30 04/24/18 14:29 Pantoprazole Sodium (Protonix) 40 mg DAILY 03/26/18 09:00 04/25/18 08:59 03/26/18 09:42 Potassium Chloride/Sodium Chloride 1,000 ml @ 70 mls/hr [id number] 03/25/18 17:00 04/24/18 16:59 03/26/18 13:46 Vancomycin HCl 1 gm/Sodium Chloride 250 ml @ 175 mls/hr Q12H 03/26/18 17:00 04/25/18 16:59 03/27/18 05:43 Plan Discharge Date: Mar 27, 2018 Dicharge DX: 1. Viral meningitis Discharge Disposition: Stable Plan Medications as needed for headache Diet and activity as tolerated Follow up with PCP 1-2 weeks Discharge plans discussed with patient, he is his own decision maker and does understand and concur with plans Time spent 25 minutes TOYA PAZ MD Mar 27, 2018 07:58
[2018-03-27 09:00] VITALS: BP 129/92
--- NOTE | 2018-03-27 09:00 | NUR ---
ASSESSMENT COMPLETED. PATIENT AWAKE AND ALERT. DENIES COMPLAINTS AT PRESENT. STATES "THIS SIDE OF MY FACE AND HEAD KIND OF HURTS BUT ITS NOT BAD. WHEN I CAME IN I FELT LIKE I HAD [employer] ON MY HEAD. IT HURT BAD!!" PATIENT ALERT AND ORIENTED. DENIES CHILLS OR FEVER. SKIN WARM AND DRY. PATIENT WITH DRY SCAB TO RIGHT CHEEK NEAR NOSE. PATIENT REPORTS THE WOUND "CAME UP" WHEN HE BEGAN TO GET SICK. NEGATIVE DRAINAGE OR REDNESS NOTED. RESPIRATIONS UNLABORED. NO DISTRESS NOTED. IV PATENT WITHOUT S/S INFILTRATION. PATIENT "RESTING" IN BED. SR UP X2. CALL LIGHT WITHIN REACH.
[2018-03-27] MEDS: PROTONIX PO SCH (09:46)
[2018-03-27] MEDS: ROCEPHIN 2,000 MG in NS 100ML 100 ML IV SCH (09:47)
--- NOTE | 2018-03-27 10:00 | NUR ---
PATIENT REPORTS PAIN AT 2. REQUEST TYLENOL. STATES "MY FACE HURTS." NO OTHER PAIN PRESENT. NO DISTRESS NOTED.
[2018-03-27] MEDS: TYLENOL PO PRN (10:12)
--- NOTE | 2018-03-27 11:00 | NUR ---
IVPB CLAMPED OFF. UNCLAMPED AND ANTIBIOTIC INFUSING. PATIENT DENIES COMPLAINTS.
[2018-03-27 11:50] VITALS: BP 129/92
[2018-03-27] MEDS: HNS 1000ML/KCL 20MEQ 1,000 ML IV SCH (11:50)
--- NOTE | 2018-03-27 11:50 | NUR ---
IV ROCEPHIN COMPLETED. IV DISCONTINUED. INSTRUCTED PATIENT RE: DISCHARGE, S/S TO REPORT OR TO RETURN TO ER OR URGENT CARE. INSTRUCTED RE: FLEXERIL FOR MUSCLE SPASMS AND TYLENOL FOR PAIN. INSTRUCTED RE: IMPORTANCE OF REST. AVOID DIRECT SUN FOR A FEW DAYS DUE TO RECEIVING ANTIBIOTICS IN THE HOSPITAL. INSTRUCTED TO RESUME REGULAR DIET. INSTRUCTED TO RESUME PREVIOUS ACTIVITY. INSTRUCTED EXTREME CAUTION RE: DRIVING WHILE TAKING FLEXERIL DUE TO DROWSINESS. PICTURE OBTAINED TO SCABBED WOUNDS TO FACE. INSTRUCTED TO REPORT DRAINAGE, FOUL ODOR, PAIN, REDNESS, CHILLS OR FEVER. PATIENT DISCHARGED WITHOUT PROBLEMS. VERBALIZES UNDERSTANDING OF INSTRUCTIONS.
== END 2018-03-27 11:55 | disposition home or self-care (01) | DRG 76 ==
LOC: ER 10:08 → ICU 14:26 → MS 03-26 10:00
PROVIDERS: ADMIT Pediatrics; ATTEND Internal Medicine
PROC: 009U3ZX Drainage of Spinal Canal, Percutaneous Approach, Diagnostic (ICD-10-PCS; principal; 2018-03-25)
DX: A87.9 Viral meningitis, unspecified (principal)
CPT/HCPCS: 36415; 36600; 62270; 80053; 81000; 82945; 83605; 83690; 84157; 85025; 86705; 86710; 86803; 87040; 87070; 87086; 87205; 87252; 89051; 96361; 96374; 96375; 99285; J0133; J0696; J1100; J1200; J1885; J2405; J3490; J7030; J7040; J7050